=== PATIENT | male | born 1995 | race African-American/Black ===

== ENCOUNTER 2021-12-22 18:41 | Emergency (ER) | payer OTHER, SELFPAY ==
[2021-12-22] MEDS ORDERED: Ketorolac Tromethamine 30 MG/ML VIAL ONE (19:58)
== END 2021-12-22 20:10 | disposition home or self-care (01) ==
LOC: ERS 18:41
DX: M79.642 Pain in left hand (principal); W22.8XXA Striking against or struck by other objects, initial encounter; Y92.89 Other specified places as the place of occurrence of the external cause; Y99.0 Civilian activity done for income or pay
CPT/HCPCS: 96372; J1885

== ENCOUNTER 2023-01-05 18:23 | Emergency (ER) | payer SELFPAY ==
[2023-01-05] MEDS ORDERED: Ketorolac Tromethamine 30 MG/ML VIAL ONE (19:43)
[2023-01-05] MEDS ORDERED: Bicillin LA 1.2 MILLION UNITS/2 ML SYRINGE ONE (20:19)
[2023-01-05 20:36] LABS: SARS-CoV-2 NAA Rapid Test Not Detected (NotDetected)
== END 2023-01-05 21:01 | disposition home or self-care (01) ==
LOC: ERS 18:23
DX: J02.9 Acute pharyngitis, unspecified (principal); R50.9 Fever, unspecified; Z20.822 Contact with and (suspected) exposure to COVID-19
CPT/HCPCS: 87430; 96372; 99283; J0561; J1885

== ENCOUNTER 2023-04-15 11:53 | Emergency (ER) | payer SELFPAY ==
[2023-04-15] MEDS ORDERED: Dexameth. Sod Phosp. 10 MG/ML (CHEMO USE ONLY) ONE (12:50)
[2023-04-15] MEDS ORDERED: Ketorolac Tromethamine 30 MG/ML VIAL ONE (12:51)
[2023-04-15 12:53] LABS: SARS-CoV-2 NAA Rapid Test DETECTED (NotDetected)
== END 2023-04-15 13:08 | disposition home or self-care (01) ==
LOC: ERS 11:53
DX: U07.1 COVID-19 (principal)
CPT/HCPCS: 87081; 87430; 96372; 99283; J1100; J1885